=== PATIENT | male | born 1965 | race Caucasian/White ===

== ENCOUNTER 2019-12-01 12:41 | Outpatient (CLI) | payer BC ==
--- NOTE | 2019-12-01 13:02 | ULT ---
RENAL ULTRASOUND HISTORY: Hyperglycemia COMPARISON: None FINDINGS: Right Kidney: Size: 11.3 x 6.1 x 6.3 cm Abnormality: Normal cortical echotexture. No hydronephrosis. Left Kidney: Size: 10.9 x 7.3 x 5.3 cm Abnormality: There is an 8 mm cyst involving the medial aspect of the superior pole the left kidney. Urinary bladder: Normal mucosa. IMPRESSION: No focal solid renal lesion or hydronephrosis. Small left renal cyst.
== END 2019-12-01 12:42 | disposition home or self-care (01) ==
LOC: BICULT 12:41
PROVIDERS: ATTEND Family Medicine
DX: R73.03 Prediabetes (principal); N28.1 Cyst of kidney, acquired
CPT/HCPCS: 76770

== ENCOUNTER 2023-01-05 07:32 | Emergency (ER) | payer BC ==
[2023-01-05 07:55] LABS: #Basophils 0.1 thou/uL (0.0-0.2); #Eosinphils 0.1 thou/uL (0.0-0.7); #Monocytes 0.5 thou/uL (0.11-0.59); #Neutrophils 2.2 thou/uL (1.40-6.50); %Basophils 1.4 % (0.0-1.0); %Eosinophils 1.5 % (0.0-10.0); %Monocytes 10.6 % (0.0-10.0); %Neutrophils 45.4 % (42.0-75.0); Hemoglobin 17.4 g/dL (14.0-18.0); Mean Corpuscular Hemoglobin 34.1 pg (27.0-31.0); Mean Corpuscular Volume 97.3 fl (78.0-98.0); Mean Platelet Volume 8.5 fL (7.4-10.4); Platelet Count 176 10x3/uL (130-400); White Blood Cell (WBC) Count 4.8 10x3/uL (4.8-10.8)
[2023-01-05 08:46] LABS: ALT (SGPT) 42 U/L (8-55); Albumin 4.6 g/dL (3.5-5.0); Alkaline Phosphatase 62 U/L (40-110); BUN (Urea Nitrogen) 18 mg/dL (8.4-25.7); Bilirubin, Total 0.6 mg/dL (0.2-1.2); Calc. Creatinine Clearance 0 mL/min (70-130); Calcium 9.7 mg/dL (7.8-10.44); Carbon Dioxide 27 mmol/L (22-29); Chloride 100 mmol/L (98-107); Estimated GFR 96; Glucose 127 mg/dL (70-105); Lipase 27 U/L (8-78); Sodium 137 mmol/L (136-145)
[2023-01-05 08:47] LABS: AST (SGOT) 33 U/L (5-34); Anion Gap 14 mmol/L (10-20); Globulin 2.6 g/dL (2.4-3.5); Protein, Total 7.2 g/dL (6.0-8.3)
== END 2023-01-05 09:28 | disposition home or self-care (01) ==
LOC: ERS 07:32
DX: R20.2 Paresthesia of skin (principal); M54.10 Radiculopathy, site unspecified
CPT/HCPCS: 71045; 80053; 83690; 84484; 85025; 93005